=== PATIENT | female | born 1995 | race Caucasian/White ===

== ENCOUNTER 2025-01-29 17:16 | Emergency (ER) | payer SELFPAY ==
[2025-01-29 18:52] LABS: APPEARANCE,URINE CLOUDY (CLEAR); COLOR,URINE YELLOW
[2025-01-29 18:53] LABS: BILIRUBIN,URINE NEGATIVE (NEGATIVE); GLUCOSE,URINE NEGATIVE (NEGATIVE); KETONES,URINE NEGATIVE (NEGATIVE); LEUKOCYTE ESTERASE,URINE LARGE (NEGATIVE); NITRITE,URINE NEGATIVE (NEGATIVE); OCCULT BLOOD,URINE TRACE-INTACT (NEGATIVE); PROTEIN,URINE 30 mg/dL (NEGATIVE); UROBILINOGEN,URINE 0.2 E.U./dL (0.2-1.0)
[2025-01-29 18:54] LABS: BACTERIA,URINE MANY /HPF; RBC,URINE NOT SEEN /HPF; WBC,URINE PACKED /HPF
[2025-01-29 19:19] LABS: HEMATOCRIT 38.7 % (37.0-47.0); HEMOGLOBIN 12.9 g/dL (11.5-16.5); MEAN CORPUSCULAR HEMOGLOBIN 29.8 pg (27.0-32.0); MEAN CORPUSCULAR HGB CONC 33.3 g/dL (31.0-35.0); MEAN PLATELET VOLUME 10.1 fL (6.0-10.0); RED BLOOD CELL COUNT 4.33 M/uL (3.80-5.80); RED CELL DISTRIBUTION WIDTH 12.5 % (11.0-16.0); WHITE BLOOD CELL COUNT,WBC 7.8 K/uL (4.0-11.0)
[2025-01-29] MEDS: Magnesium Citrate Solution 296 ML Bottle PO ONE (19:26)
[2025-01-29] MEDS ORDERED: Sulfamethoxazole/Trimethoprim 800-160 MG Tab ONE (19:30)
[2025-01-29 19:42] LABS: ANION GAP 12.1 mmol/L (5.0-15.0); BILIRUBIN TOTAL 0.1 mg/dL (0.0-1.0); POTASSIUM,K 4.1 mmol/L (3.5-5.1); PROTEIN TOTAL,TP 6.8 g/dL (6.4-8.2)
[2025-01-29 19:54] LABS: A/G RATIO 0.9 (0.8-2.0); ALBUMIN 3.3 g/dL (3.4-5.0); BUN/CREATININE RATIO 25.9 (6-25); CALCIUM 8.9 mg/dL (8.5-10.1); CREATININE 0.81 mg/dL (0.55-1.02); EST CRCL DRUG DOSING (CG) 92.21 mL/min
== END 2025-01-29 19:32 | disposition home or self-care (01) ==
LOC: LB.ED 17:16
DX: N30.00 Acute cystitis without hematuria (principal); K59.00 Constipation, unspecified; Z79.899 Other long term (current) drug therapy
CPT/HCPCS: 36415; 74018; 80053; 81001; 85027; 87086; 99283; A9270-GY